=== PATIENT | male | born 1965 | race American Indian/Alaskan Native ===

== ENCOUNTER 2017-06-13 00:50 | Inpatient (IN) | payer OTHER ==
--- NOTE | 2017-06-13 02:41 | Emergency Department Report ---
HPI - General Time Seen by Provider: 06/13/17 02:06 - HPI HPI: 52-year-old male presents to the emergency department via EMS from [facility] with the complaint of elevated potassium level. The patient has a past medical history of diabetes. Apparently the patient is a 1013 at [place] secondary to hallucinations and he does admit to this. He says that he was threatened by someone and therefore he started threatening back that he was going to kill them. I also am unsure as to why that was done on this patient but when the blood work was completed he was found to have a elevated potassium level of 6.8. The patient currently denies any chest pain, shortness of breath, nausea, vomiting or fever. He only complains of some swelling to the feet and/or legs. ED Past Medical Hx - Past Medical History Previous Medical History?: Yes Hx Hypertension: Yes Hx Diabetes: Yes Hx Seizures: Yes Hx Psychiatric Treatment: Yes - Surgical History Past Surgical History?: No ED Review of Systems ROS: Stated complaint: ELEVATED POTASSIUM Other details as noted in HPI Comment: All other systems reviewed and negative Constitutional: denies: chills, fever Eyes: denies: eye pain, eye discharge, vision change ENT: denies: ear pain, throat pain Respiratory: denies: cough, shortness of breath, wheezing Cardiovascular: edema. denies: chest pain, palpitations Gastrointestinal: denies: abdominal pain, nausea, diarrhea Genitourinary: denies: urgency, dysuria Musculoskeletal: denies: back pain, joint swelling, arthralgia Skin: denies: rash, lesions Neurological: denies: headache, weakness, paresthesias Psychiatric: visual hallucinations. denies: suicidal thoughts Physical Exam - Physical Exam Vital Signs: Vital Signs 06/13/17 02:02 Temperature 98 F Pulse Rate 100 H Blood Pressure 182/116 O2 Sat by Pulse 100 Oximetry Physical Exam: GENERAL: The patient is well-developed well-nourished. HENT: Normocephalic. Atraumatic. Patient has moist mucous membranes. EYES: Extraocular motions are intact. Pupils equal reactive to light bilaterally. NECK: Supple. Trachea is midline. CHEST/LUNGS: Clear to auscultation. There is no respiratory distress noted. HEART/CARDIOVASCULAR: Regular. There is no tachycardia. There is no murmur. ABDOMEN: Abdomen is soft, nontender. Patient has normal bowel sounds. There is no abdominal distention. SKIN: There is some pitting edema to the bilateral lower extremities. NEURO: The patient is awake, alert, and oriented. The patient is cooperative. The patient has no focal neurologic deficits. The patient has normal speech. MUSCULOSKELETAL: There is no tenderness or deformity. There is no limitation range of motion. There is no evidence of acute injury. ED Course Vital Signs 06/13/17 02:02 Temperature 98 F Pulse Rate 100 H Blood Pressure 182/116 O2 Sat by Pulse 100 Oximetry ED Medical Decision Making - Lab Data Result diagrams: 06/13/17 03:30 06/13/17 03:30 - Medical Decision Making The potassium level found in the emergency department is 6. He was given the hyperkalemia cocktail including albuterol, insulin, Kayexalate and calcium gluconate. He will be admitted to the hospital for further evaluation and treatment and has been accepted for admission by the hospitalist, Dr. Flowers. The patient is involuntary admission at [facility] but the 1013 that they had sent over appears to have . The crisis counselor went to see the patient and he still exhibits hallucinations and delusions and says that [facility] to [facility] him and his brother and he says that if this person were to be in front of him right now that he would try and kill him. I will continue the patient's 1013 and he will be seen by the psychiatric team and patient. - Differential Diagnosis Hyperkalemia, Bipolar, Schizophrenia, Hypertensive crisis Critical Care Time: No Critical care attestation.: If time is entered above; I have spent that time in minutes in the direct care of this critically ill patient, excluding procedure time. ED Disposition Clinical Impression: Hyperkalemia, Hallucinations, Delusions Hypertension Qualifiers: Hypertension type: essential hypertension Qualified Code(s): I10 - Essential ( primary) hypertension Disposition: DC-01 TO HOME OR SELFCARE Is pt being admited?: No Condition: Stable Instructions: Hypertension (ED) Referrals: JANET VAUGHN MD [Primary Care Provider] - 3-5 Days Time of Disposition: 04:57
[2017-06-13 03:55] LABS: Hematocrit 34.3 % (35.5-45.6); Hemoglobin 11.3 gm/dl (11.8-15.2); Mean Corpuscular HGB Conc 33 % (32-34); Mean Corpuscular Hemoglobin 31 pg (28-32); Mean Corpuscular Volume 94 fl (84-94); Platelet Count 180 K/mm3 (140-440); Red Blood Count 3.66 M/mm3 (3.65-5.03)
[2017-06-13 04:12] LABS: Alanine Aminotransferase 23 units/L (7-56); Albumin 2.8 g/dL (3.9-5); BUN/Creatinine Ratio 15; Blood Urea Nitrogen 17 mg/dL (9-20); Hemolysis Index 16
[2017-06-13] MEDS ORDERED: PROVENTIL IH ONE (04:13)
[2017-06-13] MEDS ORDERED: MAGNESIUM SULFATE 2GM/50ML 2 GM/50 ML BAG IV ONE ×2 (04:13→16:00)
[2017-06-13] MEDS ORDERED: KIONEX PO ONE ×2 (04:13→11:00)
[2017-06-13] MEDS ORDERED: CALCIUM GLUCONATE 1,000 MG in NACL 0.9% 100 ML IV ONE (04:14)
[2017-06-13] MEDS ORDERED: NORMODYNE IV ONE (04:31)
[2017-06-13 04:35] LABS: Basophils % (Manual) 0 % (0.0-1.8); Total Cells Counted 100
[2017-06-13 04:36] LABS: Anisocytosis 1+; Ovalocytes Few
[2017-06-13 04:39] LABS: Calcium 9.1 mg/dL (8.4-10.2)
[2017-06-13] MEDS ORDERED: HEPARIN SUB-Q SCH (06:00)
[2017-06-13] MEDS: HEPARIN SUB-Q SCH ×2 (08:30→14:05)
--- NOTE | 2017-06-13 08:41 | History and Physical Report ---
History of Present Illness Date of examination: 06/13/17 Date of admission: 06/13/17 04:57 Chief complaint: Chief complaint colon.high potassium level. History of present illness: LISA: 52-year-old male presents to the emergency department via EMS from [facility] with the complaint of elevated potassium level. The patient has a past medical history of diabetes. Apparently the patient is a 1013 at [place] secondary to hallucinations . He says that he was threatened by someone and therefore he started threatening back that he was going to kill them. labs done at [facility] showed potassium of 6.8. No shortness of breath and no fever no chills Past Medical History Previous Medical History?: Yes Hx Hypertension: Yes Hx Diabetes: Yes Hx Seizures: Yes Hx Psychiatric Treatment: Yes Surgical History Past Surgical History?: No Family history: HTN Social history Smoker Review of System: Constitutional: no fever, no chills, no weight loss Ears, eyes, nose, mouth and throat: no nasal congestion, no nasal discharge, no sinus pressure, no vision change, no red eye. Neck: No neck pain or rigidity. Cardiovascular: No chest pain, no orthopnea, no palpitations, no leg swelling Respiratory: No shortness of breath, no cough, no congestion, no wheezing Gastrointestinal: no abdominal pain, no nausea, no vomiting Genitourinary : no dysuria, no hematuria Musculoskeletal: no joint swelling or muscle ache Integumentary: no rash, no pruritis Neurological: no parathesias, no numbness, no tingling Endocrine: no cold or heat intolerance, no polyuria or polydipsia Hematologic/Lymphatic: no easy bruising, no easy bleeding, no gland swelling Allergic/Immunologic: no urticaria, no angioedema. Medications and Allergies Allergies Allergy/AdvReac Type Severity Reaction Status Date / Time No Known Allergies Allergy Unverified 06/13/17 07:56 Active Meds: Active Medications Heparin Sodium (Porcine) (Heparin) 5,000 unit SUB-Q Q8HR CHARMAINE Exam - Constitutional Vitals: Temp Pulse Resp BP Pulse Ox 98 F 95 H 20 141/84 99 06/13/17 02:02 06/13/17 07:30 06/13/17 07:45 06/13/17 07:45 06/13/17 07:45 General appearance: Present: no acute distress, well-nourished - EENT Eyes: Present: PERRL ENT: hearing intact, clear oral mucosa - Neck Neck: Present: supple, normal ROM - Respiratory Respiratory effort: normal Respiratory: bilateral: CTA - Cardiovascular Heart rate: 80 Rhythm: regular Heart Sounds: Present: S1 & S2. Absent: rub, click - Extremities Extremities: no ischemia, pulses intact, pulses symmetrical, No edema Peripheral Pulses: within normal limits - Abdominal General gastrointestinal: Present: soft, non-tender, non-distended, normal bowel sounds Male genitourinary: Present: normal - Integumentary Integumentary: Present: clear, warm, dry - Musculoskeletal Musculoskeletal: gait normal, strength equal bilaterally - Psychiatric Psychiatric: appropriate mood/affect, intact judgment & insight, other ( tremulous) - Neurologic Neurologic: CNII-XII intact, moves all extremities - Allied Health Allied health notes reviewed: nursing, case management Results - Labs CBC & Chem 7: 06/13/17 03:30 06/13/17 03:30 Labs: Laboratory Last Values WBC 3.3 K/mm3 (4.5-11.0) L 06/13/17 03:30 RBC 3.66 M/mm3 (3.65-5.03) 06/13/17 03:30 Hgb 11.3 gm/dl (11.8-15.2) L 06/13/17 03:30 Hct 34.3 % (35.5-45.6) L 06/13/17 03:30 MCV 94 fl (84-94) 06/13/17 03:30 MCH 31 pg (28-32) 06/13/17 03:30 MCHC 33 % (32-34) 06/13/17 03:30 RDW 17.0 % (13.2-15.2) H 06/13/17 03:30 Plt Count 180 K/mm3 (140-440) 06/13/17 03:30 Izard % (Auto) Balloon Dipper 06/13/17 03:30 Add Manual Diff Complete 06/13/17 03:30 Total Counted 100 06/13/17 03:30 Seg Neutrophils % Balloon Dipper 06/13/17 03:30 Seg Neuts % (Manual) 26.0 % (40.0-70.0) L 06/13/17 03:30 Band Neutrophils % 1.0 % 06/13/17 03:30 Lymphocytes % (Manual) 68.0 % (13.4-35.0) H 06/13/17 03:30 Reactive Lymphs % (Man) 2.0 % 06/13/17 03:30 Monocytes % (Manual) 2.0 % (0.0-7.3) 06/13/17 03:30 Eosinophils % (Manual) 1.0 % (0.0-4.3) 06/13/17 03:30 Basophils % (Manual) 0 % (0.0-1.8) 06/13/17 03:30 Metamyelocytes % 0 % 06/13/17 03:30 Myelocytes % 0 % 06/13/17 03:30 Promyelocytes % 0 % 06/13/17 03:30 Blast Cells % 0 % 06/13/17 03:30 Nucleated RBC % Not Reportable 06/13/17 03:30 Seg Neutrophils # Man 0.9 K/mm3 (1.8-7.7) L 06/13/17 03:30 Band Neutrophils # 0.0 K/mm3 06/13/17 03:30 Lymphocytes # (Manual) 2.2 K/mm3 (1.2-5.4) 06/13/17 03:30 Abs React Lymphs (Man) 0.1 K/mm3 06/13/17 03:30 Monocytes # (Manual) 0.1 K/mm3 (0.0-0.8) 06/13/17 03:30 Eosinophils # (Manual) 0.0 K/mm3 (0.0-0.4) 06/13/17 03:30 Basophils # (Manual) 0.0 K/mm3 (0.0-0.1) 06/13/17 03:30 Metamyelocytes # 0.0 K/mm3 06/13/17 03:30 Myelocytes # 0.0 K/mm3 06/13/17 03:30 Promyelocytes # 0.0 K/mm3 06/13/17 03:30 Blast Cells # 0.0 K/mm3 06/13/17 03:30 WBC Morphology Not Reportable 06/13/17 03:30 Hypersegmented Neuts Not Reportable 06/13/17 03:30 Hyposegmented Neuts Not Reportable 06/13/17 03:30 Hypogranular Neuts Not Reportable 06/13/17 03:30 Smudge Cells Not Reportable 06/13/17 03:30 Toxic Granulation Not Reportable 06/13/17 03:30 Toxic Vacuolation Not Reportable 06/13/17 03:30 Dohle Bodies Not Reportable 06/13/17 03:30 Pelger-Huet Anomaly Not Reportable 06/13/17 03:30 Johnny Rods Not Reportable 06/13/17 03:30 Platelet Estimate Appears normal 06/13/17 03:30 Clumped Platelets Not Reportable 06/13/17 03:30 Plt Clumps, EDTA Not Reportable 06/13/17 03:30 Large Platelets Not Reportable 06/13/17 03:30 Giant Platelets Not Reportable 06/13/17 03:30 Platelet Satelliting Not Reportable 06/13/17 03:30 Plt Morphology Comment Not Reportable 06/13/17 03:30 RBC Morphology Not Reportable 06/13/17 03:30 Dimorphic RBCs Not Reportable 06/13/17 03:30 Polychromasia Not Reportable 06/13/17 03:30 Hypochromasia Not Reportable 06/13/17 03:30 Poikilocytosis Not Reportable 06/13/17 03:30 Anisocytosis 1+ 06/13/17 03:30 Microcytosis Few 06/13/17 03:30 Macrocytosis Not Reportable 06/13/17 03:30 Spherocytes Not Reportable 06/13/17 03:30 Pappenheimer Bodies Not Reportable 06/13/17 03:30 Sickle Cells Not Reportable 06/13/17 03:30 Target Cells Not Reportable 06/13/17 03:30 Tear Drop Cells Not Reportable 06/13/17 03:30 Ovalocytes Few 06/13/17 03:30 Helmet Cells Not Reportable 06/13/17 03:30 Leavitt-[place] Bodies Not Reportable 06/13/17 03:30 [place] Rings Not Reportable 06/13/17 03:30 Randall Cells Not Reportable 06/13/17 03:30 Bite Cells Not Reportable 06/13/17 03:30 Crenated Cell Not Reportable 06/13/17 03:30 Elliptocytes Not Reportable 06/13/17 03:30 Acanthocytes (Spur) Not Reportable 06/13/17 03:30 Rouleaux Not Reportable 06/13/17 03:30 Hemoglobin C Crystals Not Reportable 06/13/17 03:30 Schistocytes Not Reportable 06/13/17 03:30 Malaria parasites Not Reportable 06/13/17 03:30 Lewis Bodies Not Reportable 06/13/17 03:30 Hem Pathologist Commnt No 06/13/17 03:30 Sodium 137 mmol/L (137-145) 06/13/17 03:30 Potassium 6.0 mmol/L (3.6-5.0) H 06/13/17 03:30 Chloride 105.8 mmol/L (98-107) 06/13/17 03:30 Carbon Dioxide 20 mmol/L (22-30) L 06/13/17 03:30 Anion Gap 17 mmol/L 06/13/17 03:30 BUN 17 mg/dL (9-20) 06/13/17 03:30 Creatinine 1.1 mg/dL (0.8-1.5) 06/13/17 03:30 Estimated GFR > 60 ml/min 06/13/17 03:30 BUN/Creatinine Ratio 15 % 06/13/17 03:30 Glucose 274 mg/dL (75-100) H 06/13/17 03:30 POC Glucose 187 (70-105) H 06/13/17 05:34 Calcium 9.1 mg/dL (8.4-10.2) 06/13/17 03:30 Magnesium 1.20 mg/dL (1.7-2.3) L 06/13/17 03:30 Total Bilirubin 0.20 mg/dL (0.1-1.2) 06/13/17 03:30 AST 31 units/L (5-40) 06/13/17 03:30 ALT 23 units/L (7-56) 06/13/17 03:30 Alkaline Phosphatase 71 units/L (35-129) 06/13/17 03:30 NT-Pro-B Natriuret Pep 1324 pg/mL (0-900) H 06/13/17 03:30 Total Protein 7.3 g/dL (6.3-8.2) 06/13/17 03:30 Albumin 2.8 g/dL (3.9-5) L 06/13/17 03:30 Albumin/Globulin Ratio 0.6 % 06/13/17 03:30 - Imaging and Cardiology EKG: report reviewed Assessment and Plan Advance Directives: Yes (full code) VTE prophylaxis?: Chemical Plan of care discussed with patient/family: Yes - Patient Problems (1) Hallucinations Current Visit: Yes Status: Acute Plan to address problem: mental health consult requested. (2) Hyperkalemia Current Visit: Yes Status: Acute Plan to address problem: patient given calcium gluconate IV insulin and Kayexalate in the ER. Kayexalate 60 g orally.Etiology unclear.his kidney function is normal. Do not know whether the patient on Zhao inhibitors ARBs (3) Hypertension Current Visit: Yes Status: Chronic Qualifiers: Hypertension type: essential hypertension Qualified Code(s): I10 - Essential (primary) hypertension Plan to address problem: continue antihypertensives. (4) Tremulousness Current Visit: Yes Status: Acute Plan to address problem: etiology unclear. (5) Diabetes mellitus, insulin dependent (IDDM), controlled Current Visit: Yes Status: Acute (6) IDDM (insulin dependent diabetes mellitus) Current Visit: Yes Status: Chronic Plan to address problem: continue coverage. Check hemoglobin A1c. (7) DVT prophylaxis Current Visit: Yes Status: Acute Plan to address problem: on Lovenox.
[2017-06-13 12:35] LABS: BUN/Creatinine Ratio 14; Blood Urea Nitrogen 17 mg/dL (9-20); Calcium 9.3 mg/dL (8.4-10.2); Hemolysis Index 1
[2017-06-13] MEDS ORDERED: D50W (25GM) Syringe IV PRN (15:09)
--- NOTE | 2017-06-13 15:09 | Progress Note ---
Assessment and Plan Assessment and plan: Patient is a 52-year-old man with a history of mental disorder, dm, htn and seizure disorder who presents from [facility] due to hyperkalemia on intake labs -Hyperkalemia, he received calicum: give more kayexalate, repeat bmp, stop sq heparin -IDDM: add ssi -Psychosis on 1013: consulted mental health -Seizures: needs home medication put in the computer, d/w nursing. History Interval history: Patient was seen and examined. Follow-up on current diagnosis with hallicunations which are still present. Overnight uneventful. Patient denies any chest pain, shortness breath, nausea/vomiting or severe headaches. Imaging , nursing note, chart, labs and old chart reviewed. Discussed with patient. Hospitalist Physical - Physical exam Narrative exam: GEN: Thin frail, NAD, AWAKE, ALERT, ORIENTATED 3 HEENT: NCAT, EOMI, PERRL, OP Clear NECK: supple, no adenopathy, no thyromegaly, no JVD CVS/HEART: RRR, NORMAL S1S2, NO JVD, pulses present bilaterally CHEST/LUNGS: CTA B, Symmetrical chest expansion, good air entry bilaterally GI/Abdomen: soft, NTND, good bowel sounds, no guarding or rebound /Bladder: no suprapubic tenderness, no CVA or paraspinal tenderness EXT/Skin: no c/c/e, no obvious rash MSK: FROM x 4 Neuro: CN 2-12 grossly intact, no new focal deficits Psych: Hallucinations - Constitutional Vitals: Temp Pulse Resp BP Pulse Ox 98 F 95 H 20 141/84 99 06/13/17 02:02 06/13/17 07:30 06/13/17 07:45 06/13/17 07:45 06/13/17 07:45 General appearance: Present: no acute distress, well-nourished Results - Labs CBC & Chem 7: 06/13/17 03:30 06/13/17 10:13 Labs: Laboratory Last Values WBC 3.3 K/mm3 (4.5-11.0) L 06/13/17 03:30 RBC 3.66 M/mm3 (3.65-5.03) 06/13/17 03:30 Hgb 11.3 gm/dl (11.8-15.2) L 06/13/17 03:30 Hct 34.3 % (35.5-45.6) L 06/13/17 03:30 MCV 94 fl (84-94) 06/13/17 03:30 MCH 31 pg (28-32) 06/13/17 03:30 MCHC 33 % (32-34) 06/13/17 03:30 RDW 17.0 % (13.2-15.2) H 06/13/17 03:30 Plt Count 180 K/mm3 (140-440) 06/13/17 03:30 [place] % (Auto) Directory Compiler 06/13/17 03:30 Add Manual Diff Complete 06/13/17 03:30 Total Counted 100 06/13/17 03:30 Seg Neutrophils % Directory Compiler 06/13/17 03:30 Seg Neuts % (Manual) 26.0 % (40.0-70.0) L 06/13/17 03:30 Band Neutrophils % 1.0 % 06/13/17 03:30 Lymphocytes % (Manual) 68.0 % (13.4-35.0) H 06/13/17 03:30 Reactive Lymphs % (Man) 2.0 % 06/13/17 03:30 Monocytes % (Manual) 2.0 % (0.0-7.3) 06/13/17 03:30 Eosinophils % (Manual) 1.0 % (0.0-4.3) 06/13/17 03:30 Basophils % (Manual) 0 % (0.0-1.8) 06/13/17 03:30 Metamyelocytes % 0 % 06/13/17 03:30 Myelocytes % 0 % 06/13/17 03:30 Promyelocytes % 0 % 06/13/17 03:30 Blast Cells % 0 % 06/13/17 03:30 Nucleated RBC % Not Reportable 06/13/17 03:30 Seg Neutrophils # Man 0.9 K/mm3 (1.8-7.7) L 06/13/17 03:30 Band Neutrophils # 0.0 K/mm3 06/13/17 03:30 Lymphocytes # (Manual) 2.2 K/mm3 (1.2-5.4) 06/13/17 03:30 Abs React Lymphs (Man) 0.1 K/mm3 06/13/17 03:30 Monocytes # (Manual) 0.1 K/mm3 (0.0-0.8) 06/13/17 03:30 Eosinophils # (Manual) 0.0 K/mm3 (0.0-0.4) 06/13/17 03:30 Basophils # (Manual) 0.0 K/mm3 (0.0-0.1) 06/13/17 03:30 Metamyelocytes # 0.0 K/mm3 06/13/17 03:30 Myelocytes # 0.0 K/mm3 06/13/17 03:30 Promyelocytes # 0.0 K/mm3 06/13/17 03:30 Blast Cells # 0.0 K/mm3 06/13/17 03:30 WBC Morphology Not Reportable 06/13/17 03:30 Hypersegmented Neuts Not Reportable 06/13/17 03:30 Hyposegmented Neuts Not Reportable 06/13/17 03:30 Hypogranular Neuts Not Reportable 06/13/17 03:30 Smudge Cells Not Reportable 06/13/17 03:30 Toxic Granulation Not Reportable 06/13/17 03:30 Toxic Vacuolation Not Reportable 06/13/17 03:30 Dohle Bodies Not Reportable 06/13/17 03:30 Pelger-Huet Anomaly Not Reportable 06/13/17 03:30 Johnny Rods Not Reportable 06/13/17 03:30 Platelet Estimate Appears normal 06/13/17 03:30 Clumped Platelets Not Reportable 06/13/17 03:30 Plt Clumps, EDTA Not Reportable 06/13/17 03:30 Large Platelets Not Reportable 06/13/17 03:30 Giant Platelets Not Reportable 06/13/17 03:30 Platelet Satelliting Not Reportable 06/13/17 03:30 Plt Morphology Comment Not Reportable 06/13/17 03:30 RBC Morphology Not Reportable 06/13/17 03:30 Dimorphic RBCs Not Reportable 06/13/17 03:30 Polychromasia Not Reportable 06/13/17 03:30 Hypochromasia Not Reportable 06/13/17 03:30 Poikilocytosis Not Reportable 06/13/17 03:30 Anisocytosis 1+ 06/13/17 03:30 Microcytosis Few 06/13/17 03:30 Macrocytosis Not Reportable 06/13/17 03:30 Spherocytes Not Reportable 06/13/17 03:30 Pappenheimer Bodies Not Reportable 06/13/17 03:30 Sickle Cells Not Reportable 06/13/17 03:30 Target Cells Not Reportable 06/13/17 03:30 Tear Drop Cells Not Reportable 06/13/17 03:30 Ovalocytes Few 06/13/17 03:30 Helmet Cells Not Reportable 06/13/17 03:30 Leavitt-[place] Bodies Not Reportable 06/13/17 03:30 [place] Rings Not Reportable 06/13/17 03:30 Randall Cells Not Reportable 06/13/17 03:30 Bite Cells Not Reportable 06/13/17 03:30 Crenated Cell Not Reportable 06/13/17 03:30 Elliptocytes Not Reportable 06/13/17 03:30 Acanthocytes (Spur) Not Reportable 06/13/17 03:30 Rouleaux Not Reportable 06/13/17 03:30 Hemoglobin C Crystals Not Reportable 06/13/17 03:30 Schistocytes Not Reportable 06/13/17 03:30 Malaria parasites Not Reportable 06/13/17 03:30 Lewis Bodies Not Reportable 06/13/17 03:30 Hem Pathologist Commnt No 06/13/17 03:30 Sodium 142 mmol/L (137-145) 06/13/17 10:13 Potassium 5.9 mmol/L (3.6-5.0) H 06/13/17 10:13 Chloride 108.3 mmol/L (98-107) H 06/13/17 10:13 Carbon Dioxide 21 mmol/L (22-30) L 06/13/17 10:13 Anion Gap 19 mmol/L 06/13/17 10:13 BUN 17 mg/dL (9-20) 06/13/17 10:13 Creatinine 1.2 mg/dL (0.8-1.5) 06/13/17 10:13 Estimated GFR > 60 ml/min 06/13/17 10:13 BUN/Creatinine Ratio 14 % 06/13/17 10:13 Glucose 251 mg/dL (75-100) H 06/13/17 10:13 POC Glucose 187 (70-105) H 06/13/17 05:34 Calcium 9.3 mg/dL (8.4-10.2) 06/13/17 10:13 Magnesium 1.20 mg/dL (1.7-2.3) L 06/13/17 03:30 Total Bilirubin 0.20 mg/dL (0.1-1.2) 06/13/17 03:30 AST 31 units/L (5-40) 06/13/17 03:30 ALT 23 units/L (7-56) 06/13/17 03:30 Alkaline Phosphatase 71 units/L (35-129) 06/13/17 03:30 NT-Pro-B Natriuret Pep 1324 pg/mL (0-900) H 06/13/17 03:30 Total Protein 7.3 g/dL (6.3-8.2) 06/13/17 03:30 Albumin 2.8 g/dL (3.9-5) L 06/13/17 03:30 Albumin/Globulin Ratio 0.6 % 06/13/17 03:30
[2017-06-13] MEDS: NOVOLOG SUB-Q SCH ×2 (19:02→23:03)
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
[2017-06-14 07:30] LABS: Hematocrit 33.6 % (35.5-45.6); Hemoglobin 11.4 gm/dl (11.8-15.2); Mean Corpuscular HGB Conc 34 % (32-34); Mean Corpuscular Hemoglobin 31 pg (28-32); Mean Corpuscular Volume 92 fl (84-94); Platelet Count 208 K/mm3 (140-440); Red Blood Count 3.66 M/mm3 (3.65-5.03); Red Cell Distribution Width 16.5 % (13.2-15.2)
[2017-06-14 07:53] LABS: BUN/Creatinine Ratio 13; Blood Urea Nitrogen 13 mg/dL (9-20); Calcium 8.7 mg/dL (8.4-10.2); Hemolysis Index 4
[2017-06-14] MEDS ORDERED: HALDOL 5 MG PO PRN (08:52)
[2017-06-14] MEDS ORDERED: TYLENOL PO PRN (08:52)
[2017-06-14] MEDS ORDERED: NORMODYNE IV PRN (08:52)
[2017-06-14] MEDS ORDERED: COGENTIN PO PRN (08:52)
[2017-06-14] MEDS ORDERED: ZOFRAN IV PRN (08:52)
[2017-06-14] MEDS: NOVOLOG SUB-Q SCH ×3 (08:53→17:00)
[2017-06-14] MEDS ORDERED: HALDOL PO PRN (09:33)
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
[2017-06-14] MEDS ORDERED: DESYREL PO PRN (15:48)
[2017-06-14] MEDS ORDERED: LORATADINE 5 MG PO PRN (15:48)
--- NOTE | 2017-06-14 15:52 | Progress Note ---
Assessment and Plan Assessment and plan: Patient is a 52-year-old man with a history of mental disorder, dm, htn and seizure disorder who presents from [facility] due to hyperkalemia on intake labs -Hyperkalemia, he received calicum iv: give more kayexalate, repeat bmp, stopped sq heparin, reviewed meds with Pharmacist, Adrian, to see if any medications cause hyperkalemia, -NIDDM: added ssi, restart his metformin -Psychosis on 1013: consulted mental health -Seizures: needs home medication put in the computer, d/w nursing==>medication reconciled. -H/o etoh abuse: started CIWA protocol. -DVT prophylaxis: scd only History Interval history: Patient was seen and examined. Follow-up on current diagnosis with hallicunations which are still present but he downplays them. Overnight uneventful. Patient denies any chest pain, shortness breath, nausea/vomiting or severe headaches. Imaging, nursing note, chart, labs and old chart reviewed. Discussed with patient. Hospitalist Physical - Physical exam Narrative exam: GEN: Thin frail, NAD, AWAKE, ALERT, ORIENTATED 3 HEENT: NCAT, EOMI, PERRL, OP Clear NECK: supple, no adenopathy, no thyromegaly, no JVD CVS/HEART: RRR, NORMAL S1S2, NO JVD, pulses present bilaterally CHEST/LUNGS: CTA B, Symmetrical chest expansion, good air entry bilaterally GI/Abdomen: soft, NTND, good bowel sounds, no guarding or rebound /Bladder: no suprapubic tenderness, no CVA or paraspinal tenderness EXT/Skin: no c/c/e, no obvious rash MSK: FROM x 4 Neuro: CN 2-12 grossly intact, no new focal deficits Psych: Hallucinations - Constitutional Vitals: Temp Pulse Resp BP Pulse Ox 99.4 F 98 H 20 170/100 99 06/14/17 11:25 06/14/17 11:25 06/14/17 11:25 06/14/17 11:25 06/14/17 11:25 General appearance: Present: no acute distress, well-nourished Results - Labs CBC & Chem 7: 06/14/17 06:13 06/14/17 06:13 Labs: Laboratory Last Values WBC 3.3 K/mm3 (4.5-11.0) L 06/14/17 06:13 RBC 3.66 M/mm3 (3.65-5.03) 06/14/17 06:13 Hgb 11.4 gm/dl (11.8-15.2) L 06/14/17 06:13 Hct 33.6 % (35.5-45.6) L 06/14/17 06:13 MCV 92 fl (84-94) 06/14/17 06:13 MCH 31 pg (28-32) 06/14/17 06:13 MCHC 34 % (32-34) 06/14/17 06:13 RDW 16.5 % (13.2-15.2) H 06/14/17 06:13 Plt Count 208 K/mm3 (140-440) 06/14/17 06:13 [place] % (Auto) Medical Staff Specialist 06/13/17 03:30 Add Manual Diff Complete 06/13/17 03:30 Total Counted 100 06/13/17 03:30 Seg Neutrophils % Medical Staff Specialist 06/13/17 03:30 Seg Neuts % (Manual) 26.0 % (40.0-70.0) L 06/13/17 03:30 Band Neutrophils % 1.0 % 06/13/17 03:30 Lymphocytes % (Manual) 68.0 % (13.4-35.0) H 06/13/17 03:30 Reactive Lymphs % (Man) 2.0 % 06/13/17 03:30 Monocytes % (Manual) 2.0 % (0.0-7.3) 06/13/17 03:30 Eosinophils % (Manual) 1.0 % (0.0-4.3) 06/13/17 03:30 Basophils % (Manual) 0 % (0.0-1.8) 06/13/17 03:30 Metamyelocytes % 0 % 06/13/17 03:30 Myelocytes % 0 % 06/13/17 03:30 Promyelocytes % 0 % 06/13/17 03:30 Blast Cells % 0 % 06/13/17 03:30 Nucleated RBC % Not Reportable 06/13/17 03:30 Seg Neutrophils # Man 0.9 K/mm3 (1.8-7.7) L 06/13/17 03:30 Band Neutrophils # 0.0 K/mm3 06/13/17 03:30 Lymphocytes # (Manual) 2.2 K/mm3 (1.2-5.4) 06/13/17 03:30 Abs React Lymphs (Man) 0.1 K/mm3 06/13/17 03:30 Monocytes # (Manual) 0.1 K/mm3 (0.0-0.8) 06/13/17 03:30 Eosinophils # (Manual) 0.0 K/mm3 (0.0-0.4) 06/13/17 03:30 Basophils # (Manual) 0.0 K/mm3 (0.0-0.1) 06/13/17 03:30 Metamyelocytes # 0.0 K/mm3 06/13/17 03:30 Myelocytes # 0.0 K/mm3 06/13/17 03:30 Promyelocytes # 0.0 K/mm3 06/13/17 03:30 Blast Cells # 0.0 K/mm3 06/13/17 03:30 WBC Morphology Not Reportable 06/13/17 03:30 Hypersegmented Neuts Not Reportable 06/13/17 03:30 Hyposegmented Neuts Not Reportable 06/13/17 03:30 Hypogranular Neuts Not Reportable 06/13/17 03:30 Smudge Cells Not Reportable 06/13/17 03:30 Toxic Granulation Not Reportable 06/13/17 03:30 Toxic Vacuolation Not Reportable 06/13/17 03:30 Dohle Bodies Not Reportable 06/13/17 03:30 Pelger-Huet Anomaly Not Reportable 06/13/17 03:30 Johnny Rods Not Reportable 06/13/17 03:30 Platelet Estimate Appears normal 06/13/17 03:30 Clumped Platelets Not Reportable 06/13/17 03:30 Plt Clumps, EDTA Not Reportable 06/13/17 03:30 Large Platelets Not Reportable 06/13/17 03:30 Giant Platelets Not Reportable 06/13/17 03:30 Platelet Satelliting Not Reportable 06/13/17 03:30 Plt Morphology Comment Not Reportable 06/13/17 03:30 RBC Morphology Not Reportable 06/13/17 03:30 Dimorphic RBCs Not Reportable 06/13/17 03:30 Polychromasia Not Reportable 06/13/17 03:30 Hypochromasia Not Reportable 06/13/17 03:30 Poikilocytosis Not Reportable 06/13/17 03:30 Anisocytosis 1+ 06/13/17 03:30 Microcytosis Few 06/13/17 03:30 Macrocytosis Not Reportable 06/13/17 03:30 Spherocytes Not Reportable 06/13/17 03:30 Pappenheimer Bodies Not Reportable 06/13/17 03:30 Sickle Cells Not Reportable 06/13/17 03:30 Target Cells Not Reportable 06/13/17 03:30 Tear Drop Cells Not Reportable 06/13/17 03:30 Ovalocytes Few 06/13/17 03:30 Helmet Cells Not Reportable 06/13/17 03:30 Leavitt-Satartia Bodies Not Reportable 06/13/17 03:30 Big [place] Rings Not Reportable 06/13/17 03:30 [place] Cells Not Reportable 06/13/17 03:30 Bite Cells Not Reportable 06/13/17 03:30 Crenated Cell Not Reportable 06/13/17 03:30 Elliptocytes Not Reportable 06/13/17 03:30 Acanthocytes (Spur) Not Reportable 06/13/17 03:30 Rouleaux Not Reportable 06/13/17 03:30 Hemoglobin C Crystals Not Reportable 06/13/17 03:30 Schistocytes Not Reportable 06/13/17 03:30 Malaria parasites Not Reportable 06/13/17 03:30 Lewis Bodies Not Reportable 06/13/17 03:30 Hem Pathologist Commnt No 06/13/17 03:30 Sodium 137 mmol/L (137-145) 06/14/17 06:13 Potassium 5.6 mmol/L (3.6-5.0) H 06/14/17 06:13 Chloride 104.4 mmol/L (98-107) 06/14/17 06:13 Carbon Dioxide 21 mmol/L (22-30) L 06/14/17 06:13 Anion Gap 17 mmol/L 06/14/17 06:13 BUN 13 mg/dL (9-20) 06/14/17 06:13 Creatinine 1.0 mg/dL (0.8-1.5) 06/14/17 06:13 Estimated GFR > 60 ml/min 06/14/17 06:13 BUN/Creatinine Ratio 13 % 06/14/17 06:13 Glucose 194 mg/dL (75-100) H 06/14/17 06:13 POC Glucose 216 (70-105) H 06/14/17 12:53 Calcium 8.7 mg/dL (8.4-10.2) 06/14/17 06:13 Magnesium 1.50 mg/dL (1.7-2.3) L 06/14/17 06:13 Total Bilirubin 0.20 mg/dL (0.1-1.2) 06/13/17 03:30 AST 31 units/L (5-40) 06/13/17 03:30 ALT 23 units/L (7-56) 06/13/17 03:30 Alkaline Phosphatase 71 units/L (35-129) 06/13/17 03:30 NT-Pro-B Natriuret Pep 1324 pg/mL (0-900) H 06/13/17 03:30 Total Protein 7.3 g/dL (6.3-8.2) 06/13/17 03:30 Albumin 2.8 g/dL (3.9-5) L 06/13/17 03:30 Albumin/Globulin Ratio 0.6 % 06/13/17 03:30 TSH 6.600 mlU/mL (0.270-4.200) H 06/14/17 06:13
[2017-06-14] MEDS ORDERED: ATIVAN IV PRN ×3 (15:53)
[2017-06-14] MEDS ORDERED: HALDOL IV PRN (15:53)
[2017-06-14] MEDS ORDERED: KIONEX PO ONE (15:55)
[2017-06-14] MEDS ORDERED: CLARITIN PO PRN (16:05)
[2017-06-14] MEDS ORDERED: MAGNESIUM SULFATE 2GM/50ML 2 GM/50 ML BAG IV ONE (17:00)
[2017-06-14 18:38] LABS: Bilirubin,Urine NEG (Negative); Blood,Urine SM (Negative); Color,Urine Yellow (Yellow); Mucus,Urine FEW /HPF; Nitrite,Urine NEG (Negative); Urobilinogen,Urine < 2.0 mg/dL (<2.0); WBC,Urine < 1.0 /HPF (0.0-6.0)
[2017-06-14] MEDS: LASIX PO SCH (20:14)
[2017-06-14] MEDS ORDERED: NON-FORMULARY (Seroquel 100 MG) PO SCH (22:00)
[2017-06-14] MEDS ORDERED: AMBIEN PO PRN (22:00)
[2017-06-14] MEDS: VITAMIN B-1 PO SCH (22:06)
[2017-06-14] MEDS: GLUCOPHAGE PO SCH (22:07)
[2017-06-15] MEDS: NOVOLOG SUB-Q SCH ×4 (05:40→17:00)
[2017-06-15] MEDS ORDERED: SYNTHROID PO SCH (06:00)
[2017-06-15] MEDS: LASIX PO SCH (06:07)
[2017-06-15 07:25] LABS: Hematocrit 34.2 % (35.5-45.6); Hemoglobin 11.2 gm/dl (11.8-15.2); Mean Corpuscular HGB Conc 33 % (32-34); Mean Corpuscular Hemoglobin 30 pg (28-32); Mean Corpuscular Volume 91 fl (84-94); Platelet Count 202 K/mm3 (140-440); Red Blood Count 3.74 M/mm3 (3.65-5.03); Red Cell Distribution Width 16.1 % (13.2-15.2)
[2017-06-15 07:48] LABS: Alanine Aminotransferase 18 units/L (7-56); Albumin 2.9 g/dL (3.9-5); BUN/Creatinine Ratio 14; Blood Urea Nitrogen 14 mg/dL (9-20); Calcium 8.3 mg/dL (8.4-10.2); Hemolysis Index 1
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
[2017-06-15 08:47] LABS: Potassium, Urine 20.16 mmol/L
[2017-06-15] MEDS: GLUCOPHAGE PO SCH (09:53)
[2017-06-15] MEDS: VITAMIN B-1 PO SCH (09:53)
[2017-06-15] MEDS ORDERED: MAG-OX PO SCH (10:00)
--- NOTE | 2017-06-15 10:47 | Progress Note ---
Subjective - Reason for Consult Consult date: 06/15/17 Reason for consult: Psychiatry Follow-up - Chief Complaint Chief complaint: "How are you" 52-year-old male presented to the emergency department via EMS from [facility] with the complaint of elevated potassium level. Today the patient is calm and cooperative during the assessment. The patient is more lucid during the interview. He stated that most of his problems come from his alcohol abuse. He stated having more "more tremors and see things" after he stop drinking (etoh). He is adamant that he want to stop drinking, because he know it's not healthy. He stated struggling with "depression" for many years since being unemployed. He stated that's one of the "main reason" why he abuse alcohol. He denies SI/HI's and AVH's. He denies a poor appetite and erratic sleep. He stated that his PCP in [place], [place] can manage his depression. Mental Status Exam - Vital signs Last Vital Signs Temp 97.6 F 06/15/17 07:21 Pulse 88 06/15/17 07:21 Resp 20 06/15/17 07:21 BP 150/82 06/15/17 07:21 Pulse Ox 99 06/15/17 07:21 - Exam Narrative exam: MSE: Appearance: calm, cooperative Behavior: good eye contact Speech: regular rate and tone Mood: "okay" Affect: congruent to mood Thought Process: linear Thought Content: denies SI/HI's and AVH's Motor Activity: ambulatory Cognition: A/O x3 Insight: fair Judgment: fair Assessment and Plan Impression: MDD. Hx of Alcoholism. Today the patient is calm and cooperative during the assessment. Patient K 4.5. Mild tremors noted during the assessment. DDx: R/O Psychotic DO Recommendation/Plan: Rescind 1013. Continue to assess the need for CIWA Protocol daily. Start Zoloft 50 mg PO daily for depression. Continue to monitor for alcohol withdrawals. Discussed the importance to abstain from alcohol consumption. Discussed possible suicidality/medication induced chepe with patient reference Zoloft. Discussed medication management with the patient's assigned Hospitalist Dr Duvall. Patient can follow up with his PCP in [place], [place] to manage his depression per the patient.
--- NOTE | 2017-06-15 11:51 | Progress Note ---
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 -DVT prophylaxis: scd only -Hypothyrodisim, new diagnosis: Started levothyroxine 1.6mcg/kg daily 06/14/17: D/w Online Content Editor, Dr. Goodwin, regarding refractory hyperkalemia, start lasix, get ua, phosphorus, cpk, cmp am, replace iv mg today and start oral magnesium TSH elevated, start treatment for hypothyroidism in am 06/15/17: Hyperkalemia resolved, replace mag again. start synthroid today, much clear mentally today, d/w [facility] HUMAN RESOURCES OPERATIONS MANAGER Yaron, probable will d/c 1012. Patient is medically stable for inpt psych or home based upon psych final recommendation History Interval history: Patient was seen and examined. Follow-up on current diagnosis with hallicunations which has resolved. Overnight uneventful. Patient denies any chest pain, shortness breath, nausea/vomiting or severe headaches. Imaging, nursing note, chart, labs and old chart reviewed. Discussed with patient. Hospitalist Physical - Physical exam Narrative exam: GEN: Thin frail, NAD, AWAKE, ALERT, ORIENTATED 3 HEENT: NCAT, EOMI, PERRL, OP Clear NECK: supple, no adenopathy, no thyromegaly, no JVD CVS/HEART: RRR, NORMAL S1S2, NO JVD, pulses present bilaterally CHEST/LUNGS: CTA B, Symmetrical chest expansion, good air entry bilaterally GI/Abdomen: soft, NTND, good bowel sounds, no guarding or rebound /Bladder: no suprapubic tenderness, no CVA or paraspinal tenderness EXT/Skin: no c/c/e, no obvious rash MSK: FROM x 4 Neuro: CN 2-12 grossly intact, no new focal deficits Psych: calm - Constitutional Vitals: Temp Pulse Resp BP Pulse Ox 97.6 F 88 20 150/82 99 06/15/17 07:21 06/15/17 07:21 06/15/17 07:21 06/15/17 07:21 06/15/17 07:21 General appearance: Present: no acute distress, well-nourished Results - Labs CBC & Chem 7: 06/15/17 06:30 06/15/17 06:30 Labs: Laboratory Last Values WBC 3.7 K/mm3 (4.5-11.0) L 06/15/17 06:30 RBC 3.74 M/mm3 (3.65-5.03) 06/15/17 06:30 Hgb 11.2 gm/dl (11.8-15.2) L 06/15/17 06:30 Hct 34.2 % (35.5-45.6) L 06/15/17 06:30 MCV 91 fl (84-94) 06/15/17 06:30 MCH 30 pg (28-32) 06/15/17 06:30 MCHC 33 % (32-34) 06/15/17 06:30 RDW 16.1 % (13.2-15.2) H 06/15/17 06:30 Plt Count 202 K/mm3 (140-440) 06/15/17 06:30 [place] % (Auto) Front End Java Developer 06/13/17 03:30 Add Manual Diff Complete 06/13/17 03:30 Total Counted 100 06/13/17 03:30 Seg Neutrophils % Front End Java Developer 06/13/17 03:30 Seg Neuts % (Manual) 26.0 % (40.0-70.0) L 06/13/17 03:30 Band Neutrophils % 1.0 % 06/13/17 03:30 Lymphocytes % (Manual) 68.0 % (13.4-35.0) H 06/13/17 03:30 Reactive Lymphs % (Man) 2.0 % 06/13/17 03:30 Monocytes % (Manual) 2.0 % (0.0-7.3) 06/13/17 03:30 Eosinophils % (Manual) 1.0 % (0.0-4.3) 06/13/17 03:30 Basophils % (Manual) 0 % (0.0-1.8) 06/13/17 03:30 Metamyelocytes % 0 % 06/13/17 03:30 Myelocytes % 0 % 06/13/17 03:30 Promyelocytes % 0 % 06/13/17 03:30 Blast Cells % 0 % 06/13/17 03:30 Nucleated RBC % Not Reportable 06/13/17 03:30 Seg Neutrophils # Man 0.9 K/mm3 (1.8-7.7) L 06/13/17 03:30 Band Neutrophils # 0.0 K/mm3 06/13/17 03:30 Lymphocytes # (Manual) 2.2 K/mm3 (1.2-5.4) 06/13/17 03:30 Abs React Lymphs (Man) 0.1 K/mm3 06/13/17 03:30 Monocytes # (Manual) 0.1 K/mm3 (0.0-0.8) 06/13/17 03:30 Eosinophils # (Manual) 0.0 K/mm3 (0.0-0.4) 06/13/17 03:30 Basophils # (Manual) 0.0 K/mm3 (0.0-0.1) 06/13/17 03:30 Metamyelocytes # 0.0 K/mm3 06/13/17 03:30 Myelocytes # 0.0 K/mm3 06/13/17 03:30 Promyelocytes # 0.0 K/mm3 06/13/17 03:30 Blast Cells # 0.0 K/mm3 06/13/17 03:30 WBC Morphology Not Reportable 06/13/17 03:30 Hypersegmented Neuts Not Reportable 06/13/17 03:30 Hyposegmented Neuts Not Reportable 06/13/17 03:30 Hypogranular Neuts Not Reportable 06/13/17 03:30 Smudge Cells Not Reportable 06/13/17 03:30 Toxic Granulation Not Reportable 06/13/17 03:30 Toxic Vacuolation Not Reportable 06/13/17 03:30 Dohle Bodies Not Reportable 06/13/17 03:30 Pelger-Huet Anomaly Not Reportable 06/13/17 03:30 Johnny Rods Not Reportable 06/13/17 03:30 Platelet Estimate Appears normal 06/13/17 03:30 Clumped Platelets Not Reportable 06/13/17 03:30 Plt Clumps, EDTA Not Reportable 06/13/17 03:30 Large Platelets Not Reportable 06/13/17 03:30 Giant Platelets Not Reportable 06/13/17 03:30 Platelet Satelliting Not Reportable 06/13/17 03:30 Plt Morphology Comment Not Reportable 06/13/17 03:30 RBC Morphology Not Reportable 06/13/17 03:30 Dimorphic RBCs Not Reportable 06/13/17 03:30 Polychromasia Not Reportable 06/13/17 03:30 Hypochromasia Not Reportable 06/13/17 03:30 Poikilocytosis Not Reportable 06/13/17 03:30 Anisocytosis 1+ 06/13/17 03:30 Microcytosis Few 06/13/17 03:30 Macrocytosis Not Reportable 06/13/17 03:30 Spherocytes Not Reportable 06/13/17 03:30 Pappenheimer Bodies Not Reportable 06/13/17 03:30 Sickle Cells Not Reportable 06/13/17 03:30 Target Cells Not Reportable 06/13/17 03:30 Tear Drop Cells Not Reportable 06/13/17 03:30 Ovalocytes Few 06/13/17 03:30 Helmet Cells Not Reportable 06/13/17 03:30 [place] Bodies Not Reportable 06/13/17 03:30 [place] Rings Not Reportable 06/13/17 03:30 Randlal Cells Not Reportable 06/13/17 03:30 Bite Cells Not Reportable 06/13/17 03:30 Crenated Cell Not Reportable 06/13/17 03:30 Elliptocytes Not Reportable 06/13/17 03:30 Acanthocytes (Spur) Not Reportable 06/13/17 03:30 Rouleaux Not Reportable 06/13/17 03:30 Hemoglobin C Crystals Not Reportable 06/13/17 03:30 Schistocytes Not Reportable 06/13/17 03:30 Malaria parasites Not Reportable 06/13/17 03:30 Lewis Bodies Not Reportable 06/13/17 03:30 Hem Pathologist Commnt No 06/13/17 03:30 Sodium 136 mmol/L (137-145) L 06/15/17 06:30 Potassium 4.5 mmol/L (3.6-5.0) 06/15/17 06:30 Chloride 101.6 mmol/L (98-107) 06/15/17 06:30 Carbon Dioxide 21 mmol/L (22-30) L 06/15/17 06:30 Anion Gap 18 mmol/L 06/15/17 06:30 BUN 14 mg/dL (9-20) 06/15/17 06:30 Creatinine 1.0 mg/dL (0.8-1.5) 06/15/17 06:30 Estimated GFR > 60 ml/min 06/15/17 06:30 BUN/Creatinine Ratio 14 % 06/15/17 06:30 Glucose 204 mg/dL (75-100) H 06/15/17 06:30 POC Glucose 155 (70-105) H 06/15/17 05:56 Osmolality 320 Mosm/kg 06/15/17 06:30 Calcium 8.3 mg/dL (8.4-10.2) L 06/15/17 06:30 Phosphorus 4.40 mg/dL (2.5-4.5) 06/15/17 06:30 Magnesium 1.50 mg/dL (1.7-2.3) L 06/15/17 06:30 Total Bilirubin 0.20 mg/dL (0.1-1.2) 06/15/17 06:30 AST 22 units/L (5-40) 06/15/17 06:30 ALT 18 units/L (7-56) 06/15/17 06:30 Alkaline Phosphatase 66 units/L (35-129) 06/15/17 06:30 Total Creatine Kinase 251 units/L (55-170) H 06/15/17 06:30 NT-Pro-B Natriuret Pep 1324 pg/mL (0-900) H 06/13/17 03:30 Total Protein 7.0 g/dL (6.3-8.2) 06/15/17 06:30 Albumin 2.9 g/dL (3.9-5) L 06/15/17 06:30 Albumin/Globulin Ratio 0.7 % 06/15/17 06:30 TSH 6.600 mlU/mL (0.270-4.200) H 06/14/17 06:13 Urine Color Yellow (Yellow) 06/14/17 Unknown Urine Turbidity Clear (Clear) 06/14/17 Unknown Urine pH 5.0 (5.0-7.0) 06/14/17 Unknown Ur Specific [place] 1.009 (1.003-1.030) 06/14/17 Unknown Urine Protein 100 mg/dl mg/dL (Negative) 06/14/17 Unknown Urine Glucose (UA) >=500 mg/dL (Negative) 06/14/17 Unknown Urine Ketones Neg mg/dL (Negative) 06/14/17 Unknown Urine Blood Sm (Negative) 06/14/17 Unknown Urine Nitrite Neg (Negative) 06/14/17 Unknown Urine Bilirubin Neg (Negative) 06/14/17 Unknown Urine Urobilinogen < 2.0 mg/dL (<2.0) 06/14/17 Unknown Ur Leukocyte Esterase Neg (Negative) 06/14/17 Unknown Urine WBC (Auto) < 1.0 /HPF (0.0-6.0) 06/14/17 Unknown Urine RBC (Auto) 1.0 /HPF (0.0-6.0) 06/14/17 Unknown U Epithel Cells (Auto) < 1.0 /HPF (0-13.0) 06/14/17 Unknown Urine Mucus Few /HPF 06/14/17 Unknown Urine Osmolality 317 Mosm/kg 06/15/17 07:45 Urine Potassium 20.16 mmol/L 06/15/17 07:45
--- NOTE | 2017-06-15 11:56 | Discharge Summary ---
Providers - Providers Date of Admission: 06/13/17 04:57 Date of discharge: 06/15/17 Attending physician: VERONICA PAUL 06/13/17 15:03 Consult to Mental Health [CONS] Routine Reason For Exam: [address] consult to:: Dr. Dario Daniels Notified:: [place] Was contact made?: Yes Comment:: [place]rael shepard saw pt 06/14/17 16:04 Consult to Physician [CONS] Routine Consulting Provider: CALLUM LEZAMA Reason For Exam: Hyperkalemia Place consult to:: Notified:: Was contact made?: Yes If yes, spoke with:: Dr. 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 -DVT prophylaxis: scd only -Hypothyrodisim, new diagnosis: Started levothyroxine 1.6mcg/kg daily 06/14/17: D/w Field Party Manager, Dr. Lezama, regarding refractory hyperkalemia, start lasix, get ua, phosphorus, cpk, cmp am, replace iv mg today and start oral magnesium TSH elevated, start treatment for hypothyroidism in am 06/15/17: Hyperkalemia resolved, replace mag again. start synthroid today, much clear mentally today, d/w pscy WAITER/WAITRESS BUFFET [place], probable will d/c 1012. Patient is medically stable for inpt psych or home based upon psych final recommendation Disposition: - TO HOME OR SELFCARE Time spent for discharge: 35 minutes Core Measure Documentation - Palliative Care Palliative Care/ Comfort Measures: Not Applicable - Core Measures Any of the following diagnoses?: none - VTE Discharge Requirements Deep Vein Thrombosis/Pulmonary Embolism Present on Admission: No Has pt received <5 days of overlap therapy or INR<2.0: No Anticoagulant overlap therapy prescribed at discharge: No Contraindication No Overlap Therapy order at DC: Not Indicated Exam - Physical Exam Narrative exam: GEN: Thin frail, NAD, AWAKE, ALERT, ORIENTATED 3 HEENT: NCAT, EOMI, PERRL, OP Clear NECK: supple, no adenopathy, no thyromegaly, no JVD CVS/HEART: RRR, NORMAL S1S2, NO JVD, pulses present bilaterally CHEST/LUNGS: CTA B, Symmetrical chest expansion, good air entry bilaterally GI/Abdomen: soft, NTND, good bowel sounds, no guarding or rebound /Bladder: no suprapubic tenderness, no CVA or paraspinal tenderness EXT/Skin: no c/c/e, no obvious rash MSK: FROM x 4 Neuro: CN 2-12 grossly intact, no new focal deficits Psych: calm - Constitutional Vitals: Temp Pulse Resp BP Pulse Ox 97.6 F 88 20 150/82 99 06/15/17 07:21 06/15/17 07:21 06/15/17 07:21 06/15/17 07:21 06/15/17 07:21 Plan Activity: no driving until cleared by PCP, up only with assistance, fall precautions, other (no strenous activity until cleared by pcp) Diet: diabetic Special Instructions: record daily BP diary (twice daily), smoking cessation Follow up with: JANET VAUGHN MD [Primary Care Provider] - 3-5 Days CALLUM LEZAMA MD [Staff Physician] - 7 Days Prescriptions: Furosemide [Lasix TAB] 20 mg PO DAILY #30 tablet Levothyroxine [Synthroid] 150 mcg PO DAILY@0600 #30 tablet Magnesium Oxide [Mag-Ox] 400 mg PO TID #30 day metFORMIN [Glucophage] 500 mg PO BID #30 tablet Sertraline [Zoloft] 50 mg PO QDAY #30 tablet Thiamine [Vitamin B-1] 100 mg PO DAILY #30 day
[2017-06-15] MEDS ORDERED: ZOLOFT PO SCH (12:00)
[2017-06-15] MEDS ORDERED: MAGNESIUM SULFATE 2GM/50ML 2 GM/50 ML BAG IV ONE (13:00)
[2017-06-15 18:43] VITALS: BP 168/109
[2017-06-16] MEDS ORDERED: LASIX PO SCH ×2 (10:00)
== END 2017-06-15 17:45 | disposition home or self-care (01) | DRG 641 ==
LOC: ED 00:50 → 3A 04:57
PROVIDERS: ADMIT Internal Medicine; ATTEND Internal Medicine
DX: E87.5 Hyperkalemia (principal); N39.0 Urinary tract infection, site not specified; I10 Essential (primary) hypertension; E11.9 Type 2 diabetes mellitus without complications; F22 Delusional disorders; F10.20 Alcohol dependence, uncomplicated; F32.9 Major depressive disorder, single episode, unspecified; G40.909 Epilepsy, unspecified, not intractable, without status epilepticus; E83.42 Hypomagnesemia; E03.9 Hypothyroidism, unspecified; F29 Unspecified psychosis not due to a substance or known physiological condition; E86.0 Dehydration
CPT/HCPCS: 36415; 80048; 80053; 81001; 82550; 82962; 83735; 83880; 83930; 83935; 84100; 84133; 84443; 85007; 85025; 85027; 93005; 93010; 96365; 96366; 96372; 96375; J0610; J1644; J1815; J3475